=== PATIENT | male | born 1965 | race Caucasian/White ===

== ENCOUNTER 2016-07-05 12:55 | Emergency (ER) | payer OTHER ==
[~2016-07-05] VITALS: Ht 182.9 cm; Wt 90.7 kg
--- NOTE | 2016-07-05 14:34 | ED GI/GU/ABDOMINAL COMPLAINT ---
History of Present Illness General Chief Complaint: Abdominal Pain/Flank Pain Stated Complaint: ABD PAIN X 1 WEEK Source: patient Exam Limitations: no limitations Vital Signs & Intake/Output Vital Signs & Intake/Output Vital Signs Date Time Temp Pulse Resp B/P Pulse O2 O2 Flow FiO2 Ox Delivery Rate 07/05 1631 98.0 88 20 120/80 98 Room Air 07/05 1306 97.7 87 16 128/72 97 Room Air ED Intake and Output 07/06 0000 07/05 1200 Intake Total Output Total Balance Patient 200 lb Weight Allergies Coded Allergies: No Known Allergies (07/05/16) Reconcile Medications Amlodipine Besylate 5 MG TABLET 1 TAB PO DAILY BP (Reported) Dicyclomine Hydrochloride (Bentyl) 10 MG CAPSULE 1 CAP PO TID PRN ABDOMINAL CRAMPING Doxazosin Mesylate 4 MG TABLET 1 TAB PO DAILY BP (Reported) Metformin HCl (Metformin HCl ER) 500 MG TAB.ER.24H 1 TAB PO DAILY DM ( Reported) Ondansetron (Zofran Odt) 4 MG TAB.RAPDIS 1 TAB SL TID PRN NAUSEA Pantoprazole Sodium (Protonix) 40 MG TABLET.DR 1 TAB PO DAILY ABDOMINAL PAIN Quinapril HCl 40 MG TABLET 1 TAB PO DAILY BP (Reported) Triage Note: PT STATES HE HAS ABD PAIN THAT STARTED OFF AND ON ABOUT 1 WEEK. PT STATES HE THOUGHT IT WOULD JUST GO AWAY BUT IT IS WORE. PT STATES HE IS HAVING DIARRHEA AND NAUSEA. Triage Nurses Notes Reviewed? yes HPI: Patient is a 51-year-old male presents complaining of epigastric pain radiating to the right upper quadrant. Pain intermittent times one week. Pain is an intermittent cramping pain. Pain is currently mild, as in moderate to severe. Patient reports that today pain was worse which prompted him to seek evaluation. Associated nausea and decreased appetite. 2-3 episodes of diarrhea daily. No blood present in patient stool. Patient drinks alcohol approximately 4-5 times per week, approximately 6 beers per day. Patient denies fevers, chills, pain worsening with eating, vomiting, urinary symptoms. (SERAFIN HODGSON,LINDA) Past History Travel History Traveled to [place] past 21 day No Medical History Any Pertinent Medical History? see below for history Cardiovascular: hypertension Endocrine: diabetes Surgical History Surgical History: appendectomy Psychosocial History What is your primary language Tajik Tobacco Use: Never used ETOH Use: heavy use Illicit Drug Use: denies illicit drug use Family History Hx Contributory? No (LINDA HERNANDEZ) Review of Systems Review of Systems Constitutional: Denies: chills, fever. EENTM: Reports: no symptoms. Respiratory: Denies: cough, short of breath. Cardiovascular: Denies: chest pain. GI: Reports: see HPI. Genitourinary: Reports: no symptoms. Musculoskeletal: Denies: back pain. Skin: Reports: no symptoms. Neurological/Psychological: Denies: headache. Hematologic/Endocrine: Denies: bruising, bleeding. Immunologic/Allergic: Denies: splenectomy. (LINDA HERNANDEZ) Physical Exam Physical Exam General Appearance: well developed/nourished, alert, awake Head: atraumatic, normal appearance Eyes: Bilateral: normal appearance. Ears, Nose, Throat, Mouth: hearing grossly normal, moist mucous membrane Neck: normal inspection, supple, full range of motion Respiratory: normal breath sounds, chest non-tender, no respiratory distress, lungs clear Cardiovascular: regular rate/rhythm Gastrointestinal: normal bowel sounds, soft, RIGHT UPPER QUADRANT TENDERNESS, NEGATIVE Li SIGN Back: normal inspection, normal range of motion, NO cva TENDERNESS Extremities: normal range of motion Neurologic/Psych: no motor/sensory deficits, awake, alert, oriented x 3, normal gait, normal mood/affect Skin: intact, normal color, warm/dry Core Measures ACS in differential dx? Yes Severe Sepsis Present: No Septic Shock Present: No (LINDA HERNANDEZ) Progress Differential Diagnosis: AAA, AMI, biliary colic, cholecystitis, diverticulitis, gastritis, hepatitis, ischemic bowel, inflamm bowel dis, pancreatitis, PUD/GERD, perforated viscous, ureterolithiasis, UTI/pyelo Plan of Care: Orders Procedure Date/time Status URINALYSIS 07/05 1445 Complete EKG 07/05 1445 Active LIPASE 07/05 1431 Complete AMYLASE 07/05 1431 Complete LACTIC ACID 07/05 1410 Complete COMPREHENSIVE METABOLIC PANEL 07/05 1410 Complete CBC WITHOUT DIFFERENTIAL 07/05 1410 Complete Laboratory Tests 07/05/16 1530: Urinalysis HEAVY H, Urine Color YEL, Urine Clarity HAZY H, Urine pH 6.0, Ur Specific Pierson >= 1.030, Urine Protein TRACE H, Urine Ketones NEG, Urine Nitrite NEG, Urine Bilirubin NEG, Urine Urobilinogen 0.2, Ur Leukocyte Esterase NEG, Ur Microscopic SEDIMENT EXAMINED, Urine Hemoglobin NEG, Urine Glucose NEG 07/05/16 1431: Anion Gap 10, Estimated GFR > 60, BUN/Creatinine Ratio 20.0, Glucose 114 H, Lactic Acid 1.7, Calcium 9.7, Total Bilirubin 1.0, AST 67 H, ALT 81 H, Alkaline Phosphatase 107, Total Protein 7.6, Albumin 4.0, Globulin 3.6, Albumin/ Globulin Ratio 1.1, Amylase 57, Lipase 132, CBC w Diff NO MAN DIFF REQ, RBC 3.74 L, MCV 96.5 H, MCH 33.7 H, RDW 12.6, MPV 8.6, Gran % 67.8, Lymphocytes % 21.0 , Monocytes % 9.8 H, Eosinophils % 0.9, Basophils % 0.5, Absolute Granulocytes 6.8 H, Absolute Lymphocytes 2.1, Absolute Monocytes 1.0 H, Absolute Eosinophils 0.1, Absolute Basophils 0, PUBS MCHC 35.0 07/05/16 1416: Amylase Cancelled, Lipase Cancelled Diagnostic Imaging: Viewed by Me: Ultrasound. Discussed w/RAD: Ultrasound. Radiology Impression: PATIENT: LURDES ROLAND PRESENT AGE: 51 PATIENT ACCOUNT NO: [id number] : 65 LOCATION: [facility] ORDERING PHYSICIAN: LINDA HODGSON SERVICE DATE: 07/05/16 EXAM TYPE: US - US-LIMITED ABDOMEN EXAMINATION: US ABDOMEN LIMITED, right upper quadrant CLINICAL INFORMATION: Epigastric pain radiating to right upper quadrant. Right upper quadrant tenderness. COMPARISON: None TECHNIQUE: Real-time imaging of the right upper quadrant abdominal viscera. Color Doppler exam used. FINDINGS: PANCREAS: Pancreatic head is normal. Portion of pancreatic body is normal. The pancreatic tail and a portion of the pancreatic body is obscured by bowel gas. LIVER: There is diffuse increased echogenicity of liver parenchyma due to fatty change. The liver is mildly enlarged. Right lobe of liver measures 20.3 cm superior inferior. No focal liver lesion. No intrahepatic bile duct dilatation. GALLBLADDER: Normal. The gallbladder is physiologically distended without evidence of stones, sludge, polyps, wall thickening or pericholecystic fluid. COMMON BILE DUCT: Normal in caliber measuring 0.5 cm in diameter. RIGHT KIDNEY: Normal. No hydronephrosis. No renal calculi or focal parenchymal lesions. The kidney measures 11.4 cm in maximum dimension. FREE FLUID: None. IMPRESSION: Mild hepatomegaly. Diffuse fatty change of liver. No acute abnormality. No gallstone or bile duct dilatation. DICTATED BY: CANDICE KERN MD DATE/TIME DICTATED:07/05/161510 CLOTH BLEACHING RANGE TENDER:ISMAEL DATE/TIME TRANSCRIBED:07/05/161510 CONFIDENTIAL, DO NOT COPY WITHOUT APPROPRIATE AUTHORIZATION. <Electronically signed in Other Vendor System> SIGNED BY: CANDICE KERN MD 07/05/161516 Initial ED EKG: normal axis, normal intervals, normal QRS complex, normal sinus rhythm, nonspecific ST T wave chg Prior EKG: unchanged (LINDA HERNANDEZ) Departure Departure Time of Disposition: 1617 Disposition: HOME OR SELF CARE Condition: Stable Clinical Impression Primary Impression: Abdominal pain Qualifiers: Abdominal location: right upper quadrant Qualified Code: R10.11 - Right upper quadrant pain Secondary Impressions: Elevated LFTs, Fatty liver Referrals: GAGANDEEP FREY MD (PCP/Family) Additional Instructions: Follow-up with your primary care provider this week for further evaluation. Call in the morning for appointment. Return to the emergency department if he develops fevers, unable to stay hydrated, or worsening of symptoms. Departure Forms: Customer Survey General Discharge Information Prescriptions: Current Visit Scripts Pantoprazole Sodium (Protonix) 1 TAB PO DAILY #14 TAB Dicyclomine Hydrochloride (Bentyl) 1 CAP PO TID PRN ABDOMINAL CRAMPING #15 CAP Ondansetron (Zofran Odt) 1 TAB SL TID PRN NAUSEA #10 TAB (LINDA HERNANDEZ) PA/[employer] Co-Sign Statement Statement: ED Attending supervision documentation- [] I saw and evaluated the patient. I have also reviewed all the pertinent lab results and diagnostic results. I agree with the findings and the plan of care as documented in the PA's/DIST[employer] MA[employer]GER [employer]'s documentation. [X] I have reviewed the ED Record and agree with the PA's/DIST[employer]'s documentation. [] Additions or exceptions (if any) to the PAs/DISTRICT MANAGER [employer]'s note and plan are summarized below: [] (GUILHERME CONLEY,CATIA)
[2016-07-05 14:43] LABS: ABSOLUTE BASOPHIL COUNT 0 /CUMM (0.0-0.2); ABSOLUTE EOSINOPHIL COUNT 0.1 /CUMM (0.0-0.7); ABSOLUTE GRANULOCYTE CT 6.8 /CUMM (1.4-6.5); ABSOLUTE LYMPH COUNT 2.1 /CUMM (1.2-3.4); BASOPHIL % 0.5 % (0.0-2.0); EOSINOPHIL % 0.9 % (0-5); GRANULOCYTE % 67.8 % (42.2-75.2); HEMATOCRIT 36.1 % (42-52); MEAN CORPUSCULAR HGB 33.7 PG (27.0-31.0); MEAN CORPUSCULAR VOLUME 96.5 FL (80.0-94.0); MEAN PLATELET VOLUME 8.6 FL (7.4-10.4); PLATELET COUNT 219 /CUMM (130-400); RBC DISTRIBUTION WIDTH 12.6 % (11.5-14.5); RED BLOOD CELL CT 3.74 /CUMM (4.70-6.10); WHITE BLOOD CELL COUNT 10.1 /CUMM (4.8-10.8)
--- NOTE | 2016-07-05 15:17 | ULTRASOUND REPORT ---
EXAMINATION: US ABDOMEN LIMITED, right upper quadrant CLINICAL INFORMATION: Epigastric pain radiating to right upper quadrant. Right upper quadrant tenderness. COMPARISON: None TECHNIQUE: Real-time imaging of the right upper quadrant abdominal viscera. Color Doppler exam used. FINDINGS: PANCREAS: Pancreatic head is normal. Portion of pancreatic body is normal. The pancreatic tail and a portion of the pancreatic body is obscured by bowel gas. LIVER: There is diffuse increased echogenicity of liver parenchyma due to fatty change. The liver is mildly enlarged. Right lobe of liver measures 20.3 cm superior inferior. No focal liver lesion. No intrahepatic bile duct dilatation. GALLBLADDER: Normal. The gallbladder is physiologically distended without evidence of stones, sludge, polyps, wall thickening or pericholecystic fluid. COMMON BILE DUCT: Normal in caliber measuring 0.5 cm in diameter. RIGHT KIDNEY: Normal. No hydronephrosis. No renal calculi or focal parenchymal lesions. The kidney measures 11.4 cm in maximum dimension. FREE FLUID: None. IMPRESSION: Mild hepatomegaly. Diffuse fatty change of liver. No acute abnormality. No gallstone or bile duct dilatation.
[2016-07-05] MEDS ORDERED: QUINAPRIL HCL40 M1 PO (15:44)
[2016-07-05] MEDS ORDERED: DOXAZOSIN MESYLA4 M1 PO (15:45)
[2016-07-05] MEDS ORDERED: AMLODIPINE BESYL5 M1 PO (15:45)
[2016-07-05] MEDS ORDERED: METFORMIN HCL500 M4 PO (15:45)
[2016-07-05] MEDS ORDERED: PROTONIX40 M3 PO (16:20)
[2016-07-05] MEDS ORDERED: BENTYL10 M1 PO (16:20)
[2016-07-05] MEDS ORDERED: ZOFRAN ODT4 M1 SL (16:20)
[2016-07-05 16:31] VITALS: BP 120/80
== END 2016-07-05 16:32 ==
LOC: ERH 12:55
PROVIDERS: Emergency Medicine
DX: R79.89 Other specified abnormal findings of blood chemistry (principal); K76.0 Fatty (change of) liver, not elsewhere classified; R10.11 Right upper quadrant pain; I10 Essential (primary) hypertension; E11.9 Type 2 diabetes mellitus without complications; Z79.84 Long term (current) use of oral hypoglycemic drugs
CPT/HCPCS: 81001; 93005; 93010